=== PATIENT | male | born 1945 | race Caucasian/White ===

== ENCOUNTER → 2016-08-20 | Outpatient (CLI) | payer OTHER ==
[~2016-08-20] VITALS: Ht 177.8 cm; Wt 98.5 kg
[~2016-08-20] MED LIST: AGG PO; AZPOPS OPB; CHOL1CAP30 PO; GLUCLIQ PO; LATA0.009 OPB; LISI-461 PO; LPT40 PO; LUTE15CA PO; MULT-506 PO; OMEG1CAP81 PO; ST J150C6 PO; TPRSR25 PO; VITACAP26 PO
[2016-08-20 13:13] VITALS: BP 167/84; PULSE 85; Ht 177.8 cm; Wt 98.5 kg
== END | disposition home or self-care (01) ==
LOC: C.NEUR 12:49
PROVIDERS: ATTEND Internal Medicine Pulmonary Disease
DX: G47.33 Obstructive sleep apnea (adult) (pediatric) (principal)

== ENCOUNTER → 2016-09-10 | Outpatient (CLI) | payer OTHER ==
[2016-09-10 13:12] LABS: HEMATOCRIT 44.2 % (42-52); MEAN CELL VOLUME 96.9 fL (80-100); MEAN CORPUSCULAR HEMOGLOBIN 32.9 pg (25-34); MEAN CORPUSCULAR HGB CONC 33.9 g/dl (32-36); MEAN PLATELET VOLUME 10.7 fL (7.4-10.4); PLATELET COUNT 285 K/uL (130-400); RED BLOOD COUNT 4.56 M/uL (4.7-6.1); WHITE BLOOD COUNT 5.85 K/uL (4.8-10.8)
[2016-09-10 13:14] LABS: ESTIMATED AVERAGE GLUCOSE 123 mg/dl; HA1C FLAG Normal (Normal)
[2016-09-10 13:27] LABS: ALT/SGPT 27 U/L (12-78); AST/SGOT 17 U/L (15-37); BLOOD UREA NITROGEN 14 mg/dl (7-18); BUN/CREATININE RATIO 9.6 (10-20); CALCIUM 9.1 mg/dl (8.5-10.1); CARBON DIOXIDE 29 mmol/L (21-32); CHLORIDE 106 mmol/L (98-107); CHOLESTEROL 111 mg/dl (0-200); GLUCOSE 102 mg/dl (70-99); POTASSIUM 4.4 mmol/L (3.5-5.1); SODIUM 141 mmol/L (136-145)
[2016-09-10 13:38] LABS: ALB/GLOB RATIO 1.1 (0.9-2); ALKALINE PHOSPHATASE 54 U/L (45-117); CHOLESTEROL/HDL RATIO 1.7; HDL CHOLESTEROL 67 mg/dl; LDL CHOLESTEROL CALCULATED 21 mg/dl; TRIGLYCERIDES 114 mg/dl (0-150); VERY LOW DENSITY LIPOPROT CALC 23 mg/dl
--- NOTE | 2016-09-15 10:01 | CODING QUERY MEDICAL NECESSITY ---
SUPPORTING DIAGNOSIS NEEDED A supporting diagnosis is required for the test/procedure performed on this patient in order for us to be reimbursed by the patient's insurance. Please provide a supporting diagnosis for the following test/procedure listed below next to the test name along with your signature. *If there is no additional diagnosis for this patient that would support the following test/procedure please document that below next to the test/procedure. Test(s)/Procedure(s) that require a supporting diagnosis: DOS 09/10 * Vitamin D DIAGNOSIS: * Vitamin B12 DIAGNOSIS: Provider Signature: Date: Thank you Wanda Waller Health Information Management Once completed, please kindly fax back to [phone] For questions please call [phone]
== END | disposition home or self-care (01) ==
LOC: C.LAB1850 11:39
PROVIDERS: ATTEND Family Medicine
DX: I25.10 Atherosclerotic heart disease of native coronary artery without angina pectoris (principal); E78.5 Hyperlipidemia, unspecified; R53.83 Other fatigue; G47.30 Sleep apnea, unspecified; I12.9 Hypertensive chronic kidney disease with stage 1 through stage 4 chronic kidney disease, or unspecified chronic kidney disease; I42.0 Dilated cardiomyopathy; R73.09 Other abnormal glucose; N18.2 Chronic kidney disease, stage 2 (mild); E03.9 Hypothyroidism, unspecified

== ENCOUNTER → 2017-02-25 | Outpatient (CLI) | payer OTHER ==
[2017-02-25 10:00] LABS: BASO % 1.1 %; BASO ABS # 0.08 K/uL (0-0.2); COMPLETE YES; EOS % 5.4 %; HEMATOCRIT 46.3 % (42-52); IG% 0.1 %; LYMPH % 28.2 %; LYMPH ABS # 2.03 K/uL (1.2-3.4); MEAN CELL VOLUME 96.9 fL (80-100); MEAN CORPUSCULAR HEMOGLOBIN 32.4 pg (25-34); MEAN CORPUSCULAR HGB CONC 33.5 g/dl (32-36); MEAN PLATELET VOLUME 10.3 fL (7.4-10.4); MONO % 8.1 %; NEUT % 57.1 %; PLATELET COUNT 301 K/uL (130-400); RED BLOOD COUNT 4.78 M/uL (4.7-6.1); WHITE BLOOD COUNT 7.19 K/uL (4.8-10.8)
[2017-02-25 10:30] LABS: ALT/SGPT 27 U/L (12-78); BLOOD UREA NITROGEN 16 mg/dl (7-18); BUN/CREATININE RATIO 9.9 (10-20); CALCIUM 9.6 mg/dl (8.5-10.1); CARBON DIOXIDE 30 mmol/L (21-32); CHLORIDE 108 mmol/L (98-107); CHOLESTEROL 132 mg/dl (0-200); GLUCOSE 105 mg/dl (70-99); POTASSIUM 4.3 mmol/L (3.5-5.1); SODIUM 141 mmol/L (136-145); TRIGLYCERIDES 156 mg/dl (0-150); VERY LOW DENSITY LIPOPROT CALC 31 mg/dl
[2017-02-25 10:41] LABS: ALB/GLOB RATIO 1.1 (0.9-2); ALKALINE PHOSPHATASE 56 U/L (45-117); AST/SGOT 21 U/L (15-37); CHOLESTEROL/HDL RATIO 2.3; HDL CHOLESTEROL 57 mg/dl; LDL CHOLESTEROL CALCULATED 44 mg/dl
[2017-02-25 10:49] LABS: ESTIMATED AVERAGE GLUCOSE 117 mg/dl; HA1C FLAG Normal (Normal)
[2017-02-25 13:39] LABS: RATIO 4.2 mcg/mg (0-30.0)
== END | disposition home or self-care (01) ==
LOC: C.LAB1850 09:12
PROVIDERS: ATTEND Nurse Practitioner Family
DX: E78.5 Hyperlipidemia, unspecified (principal); R73.9 Hyperglycemia, unspecified; E03.9 Hypothyroidism, unspecified; I12.9 Hypertensive chronic kidney disease with stage 1 through stage 4 chronic kidney disease, or unspecified chronic kidney disease; N18.2 Chronic kidney disease, stage 2 (mild)

== ENCOUNTER → 2017-04-27 | Outpatient (CLI) | payer OTHER ==
[2017-04-27 14:51] LABS: THYROID STIMULATING HORMONE 0.989 uIu/ml (0.300-4.500)
== END | disposition home or self-care (01) ==
LOC: C.LAB1850 11:55
PROVIDERS: ATTEND Nurse Practitioner Family
DX: E03.9 Hypothyroidism, unspecified (principal); R53.83 Other fatigue

== ENCOUNTER → 2017-11-09 | Day surgery (SDC) | payer OTHER ==
[2017-10-25 13:52] VITALS: Ht 177.8 cm; Wt 99.1 kg
[~2017-11-09] VITALS: Ht 177.8 cm; Wt 99.1 kg
[~2017-11-09] MED LIST changes: -AGG PO; +ASCA500 PO; +ATOR-24 PO; -AZPOPS OPB; -CHOL1CAP30 PO; +CHOLTAB11 PO; +CLOP1TAB15 PO; +DORZ1SOL6 OPB; -GLUCLIQ PO; -LATA0.009 OPB; +LATA0.5S OPB; +LEVO50TA6 PO; +LIDOCAINE HCL 2% 2 ML VIAL (20MG/ML) ONE; -LISI-461 PO; +LISI10TA PO; -LPT40 PO; +METO25TA56 PO; +MISC1CAP60 PO; +NITR0.4S UT; +OMEG10007 PO; +PROPOFOL IV EMULSION 10 MG/ML 20 ML VIAL IV ONE; -ST J150C6 PO; -TPRSR25 PO; -VITACAP26 PO
--- NOTE | 2017-11-09 11:02 | Endo History and Physical ---
History & Physical Date of Service: Nov 09, 2017. Chief Complaint: Screening Referring Physician: Dr. Hernandez History of Present Illness 72 yo CM who presents for screening colonoscopy. Past Medical History Hypertension Past Surgical History Hx Cardiac Surgery: Yes (HEART CATH, STENTS; CABG X1 VESSEL 2003) Hx Internal Defibrillator: No Hx Pacemaker: No Hx Abdominal Surgery: Yes (APPY) Hx of Implantable Prosthesis: No Hx Post-Op Nausea and Vomiting: No Hx Cancer Surgery: Yes (BCC EXCISION) Hx Thoracic Surgery: No Hx Orthopedic: No Hx Urinary Tract Surgery: No Family History None Social History Smoking Status: Former Smoker Hx Substance Use: No Hx Alcohol Use: Yes (OCCASIONAL) Allergies Coded Allergies: No Known Allergies (Unverified , 11/09/17) Current Medications Reported Home Medications Medications Dose Route/Sig Max Daily Dose Days Date Category Saw Wil ([employer] Natural Products) 1 Cap Cap 1 Cap PO DAILY 10/25/17 Reported Vitamin C (Ascorbic Acid) 500 Mg Tab 1 Tab PO DAILY 10/25/17 Reported Weldon-3 (Fish Oil) 1 Ea Cap 1 Cap PO DAILY 10/25/17 Reported Plavix (Clopidogrel Bisulfate) 75 Mg Tab 75 Mg PO QAM 10/25/17 Reported Nitrostat (Nitroglycerin) 0.4 Mg Sub 0.4 Mg UT UD PRN 10/25/17 Reported Levothyroxine Sodium 50 Mcg Tab 1 Tab PO QAM 10/25/17 Reported Cosopt Oph (Dorzolamide Hcl-Timolol Maleat) 1 Stephania Stephania 1 Drops OPB BID 10/25/17 Reported Xalatan 0.005% Oph Stephania (Latanoprost) 0.005 % Stephania 1 Drops OPB HS 10/25/17 Reported Lipitor (Atorvastatin Calcium) 40 Mg Tab 40 Mg PO QPM 10/25/17 Reported Lopressor (Metoprolol Tartrate) 25 Mg Tab 0.5 Tab PO QAM 10/25/17 Reported Lopressor (Metoprolol Tartrate) 25 Mg Tab 1 Tab PO QPM 10/25/17 Reported Prinivil (Lisinopril) 10 Mg Tab 10 Mg PO QPM 10/25/17 Reported D-5000 (Cholecalciferol) 5,000 Unit Tab 1 Tab PO DAILY 10/25/17 Reported Lutein (Lutein-Zeaxanthin) 1 Cap Cap 1 Cap PO DAILY 08/02/14 Reported Fish Oil (Weldon-3 Fatty Acids) 1 Cap Cap 1 Cap PO DAILY 08/02/14 Reported Multivitamin (Multivitamins) Tab 1 Tab PO DAILY 08/02/14 Reported Vital Signs Weight (Kilograms): 99.09 Height (Feet): 5 Height (Inches): 10 Date Time Temp Pulse Resp B/P (MAP) Pulse Ox O2 Delivery O2 Flow Rate FiO2 11/09/17 10:47 36.8 66 16 172/95 (120) Room Air Physical Exam General Appearance: WD/WN, no apparent distress Respiratory/Chest: Auscultation: breath sounds normal Cardiovascular: Heart Auscultation: RRR Abdomen: Bowel Sounds: normal Inspection & Palpation: soft, non-distended, no tenderness, guarding & rebound Assessment and Plan Assessment: 72 yo CM who presents for screening colonoscopy. Plan: Proceed with colonoscopy.
--- NOTE | 2017-11-09 12:01 | Discharge Instructions ---
Endoscopy Patient Instructions Date / Procedure(s) Performed Nov 09, 2017. Colonoscopy Allergy Information Coded Allergies: No Known Allergies (Unverified , 11/09/17) Discharge Date / Findings Nov 09, 2017. Colon polyps Non-specific colitis s/p biopsies Diverticulosis Internal hemorrhoids Medication Instructions Stopped Medication(s): PLAVIX OK to resume all medications today as prescribed Reported Home Medications Medications Dose Route/Sig Max Daily Dose Days Date Category Saw Wil ([facility] [place] [facility]) 1 Cap Cap 1 Cap PO DAILY 10/25/17 Reported Vitamin C (Ascorbic Acid) 500 Mg Tab 1 Tab PO DAILY 10/25/17 Reported Pierce-3 (Fish Oil) 1 Ea Cap 1 Cap PO DAILY 10/25/17 Reported Plavix (Clopidogrel Bisulfate) 75 Mg Tab 75 Mg PO QAM 10/25/17 Reported Nitrostat (Nitroglycerin) 0.4 Mg Sub 0.4 Mg UT UD PRN 10/25/17 Reported Levothyroxine Sodium 50 Mcg Tab 1 Tab PO QAM 10/25/17 Reported Cosopt Oph (Dorzolamide Hcl-Timolol Maleat) 1 Stephania Stephania 1 Drops OPB BID 10/25/17 Reported Xalatan 0.005% Oph Stephania (Latanoprost) 0.005 % Stephania 1 Drops OPB HS 10/25/17 Reported Lipitor (Atorvastatin Calcium) 40 Mg Tab 40 Mg PO QPM 10/25/17 Reported Lopressor (Metoprolol Tartrate) 25 Mg Tab 0.5 Tab PO QAM 10/25/17 Reported Lopressor (Metoprolol Tartrate) 25 Mg Tab 1 Tab PO QPM 10/25/17 Reported Prinivil (Lisinopril) 10 Mg Tab 10 Mg PO QPM 10/25/17 Reported D-5000 (Cholecalciferol) 5,000 Unit Tab 1 Tab PO DAILY 10/25/17 Reported Lutein (Lutein-Zeaxanthin) 1 Cap Cap 1 Cap PO DAILY 08/02/14 Reported Fish Oil (Pierce-3 Fatty Acids) 1 Cap Cap 1 Cap PO DAILY 08/02/14 Reported Multivitamin (Multivitamins) Tab 1 Tab PO DAILY 08/02/14 Reported Provider Instructions Activity Restrictions - No exercising or heavy lifting for 24 hours. - Do not drink alcohol the day of the procedure. - Do not drive a car or operate machinery until the day after the procedure. - Do not make any important decisions or sign important papers in 24 hours after the procedure. Following Day: - Return to full activity which may include returning to work/school. Diet Start your diet with liquids and light foods (jello, soup, juice, toast). Then eat your usual diet if not nauseated. Treatment For Common After Affects For mild abdominal pain, bloating, or excessive gas: - Rest - Eat lightly - Lie on right side Follow-Up Information Follow-up with Dr. Hernandez as scheduled Anesthesia Information What You Should Know You have had a procedure that required some medicine to reduce anxiety and discomfort. This treatment is called moderate sedation. After receiving the treatment, you may be sleepy, but you will be able to breathe on your own. The effects of the treatment may last for several hours. Follow these instructions along with Activity/Diet recommendations noted above: * Do NOT do anything where dizziness or clumsiness would be dangerous. * Rest quietly at home today, then you can be up and about tomorrow. * Have a responsible person stay with you the rest of today. * You may have had an I.V. today. If so, you may take the dressing off later today. Recommendations Call your doctor if: * Trouble breathing * Continuous vomiting for more than 24 hours * Temperature above 101 degrees * Severe abdominal pain or bloating * Pain not relieved by pain medicine ordered * There is increased drainage or redness from any incision * A large amount of rectal bleeding greater than 2-3 tablespoons. (If you had a polyp/s removed or have hemorrhoids, a small amount of blood - from the rectum is to be expected.) * You have any unanswered questions or concerns. IN THE EVENT OF A SERIOUS EMERGENCY, GO TO THE NEAREST EMERGENCY ROOM Your discharge instructions were prepared by provider Gonzalo Guaman. Patient Instructions Signature Page Riley Martinez Patient (or Guardian) Signature/Date: I have read and understand the instructions given to me by my caregivers. Caregiver/RN/Doctor Signature/Date: The above-named patient and/or guardian has received patient instructions on this date. + Original Patient Signature Page (only) stays with chart. Please make copy for patient.
--- NOTE | 2017-11-09 12:14 | GI REPORT ---
Procedure Date: 11/09/2017 11:20 AM Procedure: Colonoscopy Indications: Screening for colorectal malignant neoplasm Medicines: Monitored Anesthesia Care Complications: No immediate complications. Estimated Blood Loss: Estimated blood loss: none. Procedure: Pre-Anesthesia Assessment: - Prior to the procedure, a History and Physical was performed, and patient medications and allergies were reviewed. The patient's tolerance of previous anesthesia was also reviewed. The risks and benefits of the procedure and the sedation options and risks were discussed with the patient. All questions were answered, and informed consent was obtained. Prior Anticoagulants: The patient has taken Plavix (clopidogrel), last dose was 4 days prior to procedure. ASA Grade Assessment: III - A patient with severe systemic disease. After reviewing the risks and benefits, the patient was deemed in satisfactory condition to undergo the procedure. After I obtained informed consent, the scope was passed under direct vision. Throughout the procedure, the patient's blood pressure, pulse, and oxygen saturations were monitored continuously. The scope was introduced through the anus and advanced to the terminal ileum. The colonoscopy was performed without difficulty. The patient tolerated the procedure well. The quality of the bowel preparation was good. The terminal ileum, ileocecal valve, appendiceal orifice, and rectum were photographed. Findings: The perianal and digital rectal examinations were normal. A 10 mm polyp was found in the ascending colon. The polyp was sessile. The polyp was removed with a hot snare. Resection and retrieval were complete. To prevent bleeding after the polypectomy, one hemostatic clip was successfully placed (MR conditional). There was no bleeding at the end of the procedure. Localized mild inflammation characterized by erosions and erythema was found in the ascending colon. Biopsies were taken with a cold forceps for histology. Multiple small-mouthed diverticula were found in the sigmoid colon. Non-bleeding internal hemorrhoids were found during retroflexion. The hemorrhoids were small. Impression: - One 10 mm polyp in the ascending colon, removed with a hot snare. Resected and retrieved. Clip (MR conditional) was placed. - Localized mild inflammation was found in the ascending colon secondary to colitis. Biopsied. - Diverticulosis in the sigmoid colon. - Non-bleeding internal hemorrhoids. Recommendation: - Resume previous diet. - Continue present medications. - Repeat colonoscopy for surveillance based on pathology results. - Return to primary care physician as previously scheduled. Gonzalo Guaman DO 11/09/2017 12:13:38 PM This report has been signed electronically. Note Initiated On: 11/09/2017 11:20 AM I attest to the content of the Intraoperative Record and orders documented therein, exceptions below
[2017-11-09 12:26] VITALS: BP 141/82; PULSE 62; O2SAT 99
--- NOTE | 2017-11-09 12:37 | Anesthesiology Progress Note ---
Anesthesia Post Op Note Date & Time Nov 09, 2017 at 12:37 Vital Signs Pain Intensity: 0 Vital Signs Past 12 Hours Date Time Temp Pulse Resp B/P (MAP) Pulse Ox O2 Delivery O2 Flow Rate FiO2 11/09/17 12:26 62 20 141/82 (101) 99 Room Air 11/09/17 12:11 98 Room Air 11/09/17 12:11 65 20 110/60 (77) Room Air 11/09/17 11:57 65 20 91/45 (60) 98 Room Air 11/09/17 10:47 36.8 66 16 172/95 (120) Room Air Notes Mental Status: alert / awake / arousable, participated in evaluation Pt Amnestic to Procedure: Yes Nausea / Vomiting: adequately controlled Pain: adequately controlled Airway Patency, RR, SpO2: stable & adequate BP & HR: stable & adequate Hydration State: stable & adequate Anesthetic Complications: no major complications apparent
== END | disposition home or self-care (01) ==
LOC: C.GI 09:49
PROVIDERS: ATTEND Internal Medicine
DX: Z12.11 Encounter for screening for malignant neoplasm of colon (principal); D12.2 Benign neoplasm of ascending colon; K52.9 Noninfective gastroenteritis and colitis, unspecified; K57.30 Diverticulosis of large intestine without perforation or abscess without bleeding; K64.8 Other hemorrhoids; Z79.899 Other long term (current) drug therapy; Z87.891 Personal history of nicotine dependence; Z95.5 Presence of coronary angioplasty implant and graft; Z95.1 Presence of aortocoronary bypass graft; Z79.02 Long term (current) use of antithrombotics/antiplatelets

== ENCOUNTER → 2018-03-03 | Outpatient (CLI) | payer OTHER ==
[~2018-03-03] MED LIST changes: -LIDOCAINE HCL 2% 2 ML VIAL (20MG/ML) ONE; -PROPOFOL IV EMULSION 10 MG/ML 20 ML VIAL IV ONE
[2018-03-03 12:22] LABS: BASO % 0.9 %; BASO ABS # 0.05 K/uL (0-0.2); EOS % 3.1 %; EOS ABS # 0.18 K/uL (0-0.5); HEMATOCRIT 42.4 % (42-52); HEMOGLOBIN 14.3 g/dL (14.0-18.0); IG# 0.01 K/uL (0.00-0.02); LYMPH % 24.4 %; LYMPH ABS # 1.42 K/uL (1.2-3.4); MEAN CELL VOLUME 96.1 fL (80-100); MEAN CORPUSCULAR HEMOGLOBIN 32.4 pg (25-34); MEAN CORPUSCULAR HGB CONC 33.7 g/dl (32-36); MEAN PLATELET VOLUME 10.8 fL (7.4-10.4); MONO % 9.1 %; MONO ABS # 0.53 K/uL (0.11-0.59); NEUT % 62.3 %; NEUT ABS # 3.63 K/uL (1.4-6.5); PLATELET COUNT 261 K/uL (130-400); RED CELL DISTRIBUTION WIDTH CV 13.9 % (11.5-14.5); RED CELL DISTRIBUTION WIDTH SD 48.7 fL (36.4-46.3); WHITE BLOOD COUNT 5.82 K/uL (4.8-10.8)
[2018-03-03 12:42] LABS: ALBUMIN 3.8 gm/dl (3.4-5.0); ALKALINE PHOSPHATASE 55 U/L (45-117); ALT/SGPT 25 U/L (12-78); AST/SGOT 21 U/L (15-37); BLOOD UREA NITROGEN 16 mg/dl (7-18); CALCIUM 8.8 mg/dl (8.5-10.1); CARBON DIOXIDE 26 mmol/L (21-32); CHOLESTEROL 106 mg/dl (0-200); CREATININE 1.52 mg/dl (0.60-1.40); GLUCOSE 105 mg/dl (70-99); LDL CHOLESTEROL CALCULATED 26 mg/dl; SODIUM 140 mmol/L (136-145); TOTAL PROTEIN 7.2 gm/dl (6.4-8.2)
[2018-03-03 12:45] LABS: HEMOGLOBIN A1C 5.9 % (4.5-5.6)
== END | disposition home or self-care (01) ==
LOC: C.LAB1850 09:50
PROVIDERS: ATTEND Nurse Practitioner Family
DX: I25.10 Atherosclerotic heart disease of native coronary artery without angina pectoris (principal); E78.5 Hyperlipidemia, unspecified; R73.9 Hyperglycemia, unspecified; E03.9 Hypothyroidism, unspecified; I12.9 Hypertensive chronic kidney disease with stage 1 through stage 4 chronic kidney disease, or unspecified chronic kidney disease; N18.2 Chronic kidney disease, stage 2 (mild)

== ENCOUNTER 2022-07-23 06:58 | Observation (INO) ==
--- NOTE | 2022-07-20 12:24 | Anesthesiology Consultation ---
Date of Service July 20, 2022 Assessment & Plan (1) Encounter for pre-operative examination: Chart Review Chart Review: Acceptable Risk for Surgery History Surgery Operation Date: 07/23/22 07:30 Proposed Procedures p TURP (Transurethral Resection of the Prostate) - Mor Killian DO s Possible Transrectal Ultrasound, Possible Prostate Biopsy - Mor banks DO Height/Weight Height: 5 ft 10 in Weight: 95.254 kg Allergies Allergy/AdvReac Type Severity Reaction Status Date / Time No Known Drug Allergies Allergy Verified 07/20/22 08:58 Medications Home Medications Medication Instructions Recorded Confirmed Last Taken latanoprost 0.005 % eye drops 1 drops ophthalmic (eye) HS 03/20/19 07/20/22 Unknown CPAP Machine #1 ea 05/17/19 05/20/22 Unknown nitroglycerin 0.4 mg sublingual 0.4 mg sublingual Q5M PRN chest 01/22/21 07/20/22 Unknown tablet pain #30 tabs dorzolamide 22.3 mg-timolol 6.8 1 drp ophthalmic (eye) BID 09/08/21 07/20/22 Unknown mg/mL eye drops levothyroxine 50 mcg tablet 50 mcg PO DAILY #90 tabs 02/10/22 07/20/22 Unknown diphenhydramine HCl 25 mg tablet 25 mg PO .qhs PRN Insomnia 02/17/22 07/20/22 Unknown atorvastatin 40 mg tablet 40 mg PO QPM #90 tabs 04/21/22 07/20/22 Unknown losartan 25 mg tablet 25 mg PO DAILY #90 tabs 04/21/22 07/20/22 Unknown mupirocin 2 % topical ointment 1 applic topical DAILY #22 grams 04/21/22 07/20/22 Unknown aspirin 81 mg tablet,delayed 81 mg PO DAILY 07/02/22 07/20/22 Unknown release clopidogrel 75 mg tablet 75 mg PO Q2D 07/02/22 07/20/22 Unknown finasteride 5 mg tablet 5 mg PO DAILY #90 tabs 07/02/22 07/20/22 Unknown tamsulosin 0.4 mg capsule 0.4 mg PO DAILY #90 caps 07/02/22 07/20/22 Unknown metoprolol succinate 25 mg 25 mg PO DAILY #90 tabs 07/13/22 07/20/22 Unknown tablet,extended release 24 hr Past Medical History Medical History (Updated 07/20/22 @ 12:36 by Poncho Steve MD) Arthritis BPH (benign prostatic hyperplasia) Cardiomyopathy Chronic kidney disease ? 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>MILD WEAKNESS ON RT SIDE (REASON FOR PLAVIX) Hyperlipidemia Hypertension Hypothyroidism Sleep apnea CPAP Ulcerative colitis Past Family History Family History Mother Adverse effect of anesthesia Heart disease Environmental allergies Hypertension Stroke Father Heart disease Hypertension Stroke Brother Heart disease Hypertension Family/Other Heart disease Grandfather (Maternal) Heart disease Hypertension Grandmother (Maternal) Heart disease Hypertension Other No family history of adverse response to anesthesia No family history of bleeding disorder Denies family history of Ovarian cancer Prostate cancer Myocardial infarction Breast cancer Colorectal cancer Past Surgical History Surgical History H/O eye surgery RT/LEFT FOR GLAUCOMA *LASER SURGERIES H/O heart bypass surgery 2003>SINGLE VESSEL AT [facility] *NOW FOLLOWS WITH DR. LOPEZ History of appendectomy History of cardiac cath 2003 History of colonoscopy History of nasal cauterization History of tooth extraction Social History Smoking Status: Former smoker tobacco type: cigarettes Smoking End Date: 35+ YEARS AGO Hx Alcohol Use: Yes Alcohol type: wine alcohol intake frequency: a few times a week Hx Substance Use: No Testing Laboratory Results Laboratory Tests 04/17/22 07/15/22 07/15/22 08:35 09:41 09:41 Hgb 13.2 L Plt Count 363 Potassium 4.4 Creatinine 1.46 H Hemoglobin A1c 6.1 H Electrocardiogram Date: 07/15/22 Findings: + NSR @ (62 1st degree AV block) Echocardiogram Per cardiology notes had an EF 45% in past but returned to normal Stress Test 2014 inferior ischemia - refused intervention - per Cards note has been stable and exercises in a gym 3 times a week - does occasionally use nitroglycerin
[~2022-07-23 06:58] MED LIST changes: -ASCA500 PO; -ATOR-24 PO; -CHOLTAB11 PO; -CLOP1TAB15 PO; -DORZ1SOL6 OPB; +GENTAMICIN SULFATE 80 MG in DEXTROSE 5% 100 ML IV SCH; -LATA0.5S OPB; -LEVO50TA6 PO; -LISI10TA PO; +LR 15ML/HR IV SCH; -LUTE15CA PO; -METO25TA56 PO; -MISC1CAP60 PO; -MULT-506 PO; -NITR0.4S UT; -OMEG10007 PO; -OMEG1CAP81 PO; +cefTRIAXone SODIUM 1,000 MG in DEXTROSE 5% 50 ML IV SCH
[2022-07-23] MEDS ORDERED: MoRPHine SULFATE 2 MG/ML CARP IV PRN (07:07)
[2022-07-23] MEDS ORDERED: oxyCODONE/ACETAMINOPHEN 5mg/325mg TAB PO PRN (07:07)
--- NOTE | 2022-07-23 07:07 | History & Physical Bridge Note ---
Date of Service July 23, 2022 History & Physical Bridge Note I have examined the patient, reviewed the History & Physical and in the interval since the performance of the History & Physical I have noted the following changes of clinical significance: no changes noted
[2022-07-23] MEDS ORDERED: NITROGLYCERIN SL 0.4 MG/TAB TAB SL PRN (07:14)
[2022-07-23] MEDS ORDERED: PHENAZOPYRIDINE HCL 200 MG TAB PO PRN (07:15)
[2022-07-23] MEDS ORDERED: BELLADONNA/OPIUM SUPP 60 MG SUPP PR PRN (07:15)
[2022-07-23] MEDS ORDERED: cefTRIAXone SODIUM 1,000 MG in DEXTROSE 5% AD-VAN 50 ML IV STA (07:43)
[2022-07-23] MEDS ORDERED: ONDANSETRON INJ 2 MG/ML 2 ML VIAL ONE (07:46)
[2022-07-23] MEDS ORDERED: DEXAMETHASONE SOD INJ 4 MG/ML VIAL ONE (07:46)
[2022-07-23] MEDS ORDERED: LIDOCAINE 2% MPF LOCAL 5 ML VIAL INFIL ONE (07:46)
[2022-07-23] MEDS ORDERED: PROPOFOL IV EMULSION 10 MG/ML 20 ML VIAL IV ONE ×3 (07:46→09:41)
[2022-07-23] MEDS ORDERED: ATROPINE SULFATE 0.1 MG/ML 10ML SYR IV PRN (08:11)
[2022-07-23] MEDS ORDERED: fentaNYL citrate 100 MCG/2 ML VIAL IV PRN (08:11)
[2022-07-23] MEDS ORDERED: ONDANSETRON INJ 2 MG/ML 2 ML VIAL IV PRN (08:11)
[2022-07-23] MEDS ORDERED: ePHEDrine sulfate 50 MG/ML AMP IV PRN (08:11)
[2022-07-23] MEDS ORDERED: PROMETHAZINE HCL 6.25 MG in SODIUM CHLORIDE 0.9% 50 ML IV PRN (08:11)
[2022-07-23 08:18] LABS: Basophils # (auto) 0.08 K/uL (0-0.2); Basophils % (auto) 1.4 %; Eosinophils # (auto) 0.37 K/uL (0-0.50); Eosinophils % (auto) 6.6 %; Hematocrit (blood only) 39.9 % (40.1-51.0); Hemoglobin 13.2 g/dl (14.0-18.0); Immature Granulocytes # (auto) 0.02 K/uL (0.00-0.02); Immature Granulocytes % (auto) 0.4 %; Mean Corpuscular Hemoglobin 32.6 pg (25.0-34.0); Mean Corpuscular Hgb Conc 33.1 g/dL (32.0-36.0); Mean Corpuscular Volume 98.5 fL (80.0-100.0); Mean Platelet Volume 10.3 fL (9.4-12.4); Monocytes # (auto) 0.58 K/uL (0.24-0.82); Monocytes % (auto) 10.3 %; Neutrophils # (auto) 3.16 K/uL (1.4-6.5); Neutrophils % (auto) 56.3 %; Platelet Count 208 K/uL (130-400); RDW Coefficient of Variation 13.2 % (11.5-14.5); RDW Standard Deviation 47.8 fL (36.4-46.3); Red Blood Count 4.05 M/uL (4.63-6.08); White Blood Count 5.61 K/ul (4.8-10.8)
[2022-07-23] MEDS ORDERED: BELLADONNA/OPIUM SUPP 60 MG SUPP PR ONE (08:43)
[2022-07-23] MEDS ORDERED: fentaNYL citrate 100 MCG/2 ML VIAL ONE (08:49)
[2022-07-23 08:55] LABS: Albumin Globulin Ratio 1.4 (0.9-2); Albumin Level 3.9 gm/dl (3.4-5.0); BUN Creatinine Ratio 12.6 (10-20); Bilirubin,Total 0.6 mg/dl (0.2-1.0); Calcium 9.4 mg/dl (8.5-10.1); Creatinine Clr Calc Pharmacy 49.5 ml/min; Est GFR (African American) 54.4 ml/min; Est GFR (Non-African American) 46.9 ml/min; Globulin 2.8 gm/dl (2.5-4.0); Potassium 4.1 mmol/L (3.5-5.1); Total Protein 6.7 gm/dl (6.0-8.3)
--- NOTE | 2022-07-23 09:54 | Operative Report ---
PG Post Operative Report Pre & Post Diagnosis Operation Date: 07/23/22 08:25 Pre-Op Diagnosis: Acute Urinary Retention, Elevated Prostate Specifi Post-Op Diagnosis: Acute Urinary Retention, Elevated Prostate Specific Antigen I identified the patient and participated in the time-out.: Yes Procedure Operation Date: 07/23/22 08:25 Actual Procedures p Transurethral Resection of the Prostate(Not Applicable) - Mor Killian DO s Transrectal Ultrasound, Transnea Prostate Biopsy(Not Applicable) - Mor Killian DO Surgeon Mor Killian, II, DO Resistance Machine Welder Setter None Estimated Blood Loss 10 Findings Consistent with Post-Op Diagnosis Large Prostate with obstruction. Extremely large lateral and median lobes with considerable obstruction and high bladder neck 16 x biopsy of prostate. Volume on u/s 106.46 Specimens Prostate adenoma. Core biopsy x 16 - 2 x Right and Left : Base, Mid, Lateral, and apex Drains 24Fr [address] Catheter Anesthesia Type General Complications none Disposition Disposition: Recovery Room Indications Patient with obstruction due to prostate enlargement. Significantly elevated PSA. Risks and benefits discussed at length. Description of Procedure Patient was consented and brought back to the operating room. Patient was placed under anesthesia in the supine position and moved to the dorsal lithotomy position. Patient was prepped and draped in the regular sterile fashion. A time out was completed. Attention was first taken to the prostate biopsy. Preparation: The patient was prepped and draped in the usual sterile fashion, a 6mHz GE transrectal probe, lubricated with Surgilube, was gently placed within the rectal vault and positioned adjacent to the prostate Transrectal Sonography Transrectal Prostate Biopsy with Ultrasound: Core biopsies take from the right side of the prostate: 8 Core biopsies taken from the left side of the prostate: 8 Locations: Left, Right, Base, Mid and [place] Total number of biopsies: 16 Hypoechoic Lesion(s) Hypoechoic Lesion(s): None Calcification(s) Calcification(s): None Prostate Capsule Prostate Capsule: Intact Contour: smooth Seminal Vesicles Seminal Vesicles: Normal Estimated Prostate Weight (grams): 106.46 PSA Value: PSA (NG/ML) 17 PAMELLA: No palpable nodules or masses. Extremely large prostate. Belladonna and opium suppository placed after the procedure. At this point, the area was reprepped and I re-scrubbed and my drapes/gloves were exchanged. A 30degree Cystoscope was placed into the bladder and the entire bladder was examined. The UO's were identified as well as the bladder neck, trigone, dome, and the other important landmarks. The prostatic urethra and large lobes/adenoma was assessed and the veru and bladder neck identified and area/size was assessed. The resection scope was placed and the fine bipolar loop was selected. Starting at the 5 and 7 o'clock positions, a channel was created from bladder neck to the veru. A large amount of tissue was resected in order to debulk this area. The lateral and median lobes were all found to have severe enlargement. Large varicosities were noted throughout the prostate and required fulguration throughout the process. The Specimen was removed and sent for analysis. The resection bed and any bleeding areas were fulgurated/cauterized and the entire area inspected. All bleeding was controlled. The bladder was inspected a final time. The bladder was emptied and irrigated. All specimen and debris was removed. The scope was removed with the bladder partially full. A catheter was placed and balloon elevated. This was easily irrigated. The patient was cleaned, aroused from anesthesia, and transferred to the pacu in stable condition having tolerated the procedure well with no complications. I was present and participated in all aspects of the procedure. The patient will be monitored in the PACU until transferred. Will plan to observe patient overnight with catheter in place with CBI. Pathology and catheter removal likely in 10 days. I attest to the content of the Intraoperative Record and any orders documented therein. Any exceptions are noted below.
[2022-07-23] MEDS ORDERED: diphenhydrAMINE Capsule 25 MG CAP PO PRN (11:01)
--- NOTE | 2022-07-23 11:06 | Anesthesiology Progress Note ---
Date of Service July 23, 2022 Anesthesia Post Procedure Vital Signs Vital Signs: Temp Pulse Pulse Resp BP Pulse Ox O2 Del Method 07/23/22 11:00 58 L 12 142/78 H 96 Room Air 07/23/22 10:45 62 16 137/69 95 Room Air 07/23/22 10:35 36.3 C L 58 L 13 133/72 93 Room Air 07/23/22 10:25 57 L 12 121/72 92 Room Air 07/23/22 10:15 60 16 143/75 H 97 Oxymask 07/23/22 10:05 68 17 148/83 H 98 Oxymask 07/23/22 09:55 36.1 C L 67 17 136/82 97 Oxymask 07/23/22 07:37 36.8 C 75 18 149/83 H 98 Room Air O2 Flow Rate 07/23/22 11:00 07/23/22 10:45 07/23/22 10:35 07/23/22 10:25 07/23/22 10:15 5 07/23/22 10:05 5 07/23/22 09:55 7 07/23/22 07:37 Pain Intensity Penis: Pain Intensity: 2 Transfer of Care Handoff Completed per policy Notes Mental Status: alert / awake / arousable Patient Amnestic to Procedure: Yes Nausea / Vomiting: adequately controlled Pain: adequately controlled Airway Patency, RR, SpO2: stable & adequate BP & HR: stable & adequate Hydration State: stable & adequate Anesthetic Complications: no major complications apparent
[2022-07-23] MEDS: SODIUM CHLORIDE 0.9% 1000ML 1,000 ML IV SCH (14:11)
[2022-07-23] MEDS: METOPROLOL SUCC 25MG EXT REL TAB PO SCH (14:22)
[2022-07-23] MEDS: DOCUSATE SODIUM 100 MG CAP PO SCH ×2 (14:55→20:02)
[2022-07-23] MEDS: MUPIROCIN 2% OINT 22 GM TUBE TOP SCH (14:55)
[2022-07-23] MEDS: TAMSULOSIN HCL 0.4 MG CAP PO SCH (14:56)
[2022-07-23] MEDS: DORZOLAMIDE/TIMOLOL 22.3/6.8MG/ML 10 ML BTL OP SCH (20:03)
[2022-07-23] MEDS ORDERED: ATORVASTATIN 40 MG TAB PO SCH (21:00)
[2022-07-23] MEDS ORDERED: LATANOPROST 0.005% OP SOLN 2.5 ML BTL OP SCH (21:00)
[2022-07-24] MEDS: SODIUM CHLORIDE 0.9% 1000ML 1,000 ML IV SCH (03:31)
[2022-07-24] MEDS ORDERED: LEVOTHYROXINE SODIUM 50 MCG TABLET PO SCH (06:30)
[2022-07-24] MEDS ORDERED: cefTRIAXone SODIUM 2,000 MG in DEXTROSE 5% AD-VAN 50 ML IV SCH (08:30)
--- NOTE | 2022-07-24 08:39 | Urology Progress Note ---
Date of Service July 24, 2022 Assessment & Plan (1) Acute urinary retention: (2) Elevated prostate specific antigen (PSA): Plan: - Pt POD#1 s/p TURP and prostate biopsy with Dr. Killian - Doing well, progressing as expected - Tolerating PO diet - 3 way Elias catheter intact, patent and draining clear urine with CBI on slow - CBI clamped @0815 - will reassess later this AM - Maintain Elias catheter for 10 days - Anticipate home with Elias catheter later today presuming urine appropriate and he continues to progress as expected - He can resume aspirin and Plavix in 1-2 days if urine remains clear to light pink - Rx sent for Cephalexin 500 mg BID x 7 days - Expected clinical course reviewed, all questions answered - Will arrange outpatient follow-up with our service for voiding trial and pathology review Pt reassessed at 0930 - urine clear light grayson color with CBI clamped. Discontinue CBI set up, plug irrigation port. Patient is ready for discharge to home with Elias catheter. Orders placed. Admission and Anticipated Discharge Date Admission Date: July 23, 2022 Subjective Patient seen and examined at bedside this morning. He is awake and sitting up in bed eating breakfast. No acute issues overnight, though notes he did not sleep well. He reports some discomfort at the tip of his penis, otherwise denie s pain. Elias intact and draining clear urine with CBI on slow. CBI clamped at 0815. Tolerating PO diet. No nausea or vomiting. No fever or chills. Review of Systems Constitutional: as per Subjective / HPI Gastrointestinal: as per Subjective / HPI Genitourinary: + as per Subjective / HPI Physical Exam Constitutional: well developed and well nourished; no acute distress Respiratory: normal respiratory effort; no respiratory distress and no labored breathing Gastrointestinal (Abdomen): Inspection/Auscultation: abdomen not distended Musculoskeletal: Head/Neck/Chest: normocephalic and head atraumatic Psychiatric: Orientation: alert and oriented x 3 Genitourinary: Elias intact and draining clear urine with CBI on slow. CBI clamped at 0815. Results & Data ([facility]) Vital Signs (Past 12 Hours) Vital Signs Temp Pulse Pulse Resp BP BP Pulse Ox 07/24/22 07:29 36.7 C 69 18 132/74 96 07/24/22 02:38 36.5 C 68 18 142/73 H 97 07/23/22 23:32 36.7 C 72 16 127/70 95 07/23/22 22:18 61 O2 Del Method 07/24/22 07:29 Room Air 07/24/22 02:38 Room Air 07/23/22 23:32 Room Air 07/23/22 22:18 PG Care Time/CCT Total # of Minutes Spent Total Time Spent with Patient: Total time spent is greater than 50% in coordination of care (as documented) at patient's floor/unit and/or counseling patient: Coding Level of Care Code None Diagnoses Acute urinary retention R33.8 Elevated prostate specific antigen (PSA) R97.20
--- NOTE | 2022-07-24 08:51 | Discharge Summary ---
Date of Service July 24, 2022 Admission HPI Per Admitting Provider Patient with obstruction due to prostate enlargement. Significantly elevated PSA. Here for TURP and prostate biopsy. Risks and benefits discussed at length. Admission Exam Per Admitting Provider General: Alert in no acute distress. HEENT: Normocephalic Atraumatic. Inspection normal. Psychologic: Normal affect. Respiratory: Nonlabored. Cardiovascular: No tachycardia Skin: Portal and Dry. Principal Diagnosis Acute urinary retention, elevated PSA Discharge Exam Constitutional well developed and well nourished; no acute distress Respiratory normal respiratory effort; no respiratory distress and no labored breathing Gastrointestinal (Abdomen) Inspection/Auscultation: abdomen not distended Musculoskeletal Head/Neck/Chest: normocephalic and head atraumatic Psychiatric Orientation: alert and oriented x 3 Genitourinary Elias draining clear urine with CBI on slow. CBI clamped at 0815. Discharge Data Allergies Allergy/AdvReac Type Severity Reaction Status Date / Time No Known Drug Allergies Allergy Verified 07/23/22 07:21 Procedures Performed Operation Date: 07/23/22 08:25 Actual Procedures p Transurethral Resection of the Prostate(Not Applicable) - Mor Killian DO s Transrectal Ultrasound, Transnea Prostate Biopsy(Not Applicable) - Mor Killian DO Hospital Course (1) Acute urinary retention: (2) Elevated prostate specific antigen (PSA): - Pt POD#1 s/p TURP and prostate biopsy with Dr. Killian - Doing well, progressing as expected - Tolerating PO diet - 3 way Elias catheter intact, patent and draining clear urine with CBI on slow - CBI clamped @0815 - will reassess later this AM - Maintain Elias catheter - Anticipate home with Elias catheter later today presuming urine appropriate and he continues to progress as expected - He can resume aspirin and Plavix in 1-2 days if urine remains clear to light pink - Rx sent for Cephalexin 500 mg BID x 7 days - Expected clinical course reviewed, all questions answered - Will arrange outpatient follow-up with our service for voiding trial and pathology review Pt reassessed at 0930 - urine clear light grayson color with CBI clamped. Discontinue CBI set up, plug irrigation port. Patient is ready for discharge to home with Elias catheter. Orders placed. Total Time Total Time Spent Total Time Spent (In Minutes): 29 Discharge Plan Discharge Items Patient Disposition: Home - Self-Care Reason For Visit: Acute Urinary Retention, Elevated Prostate Specifi Discharge Diagnosis: Acute Urinary retention, Elevated Prostate Specific Antigen Activity: Per Instructions section Lifting: No more than 25 pounds Bathing Comment: Okay to shower, no tub bath or soaking Sexual Activity: Wait until after follow-up appointment Exercise/Sports: Wait until after follow-up appointment Non-emergency contact: Surgeon and Urologist Call non-emergency contact if: your pain is not controlled, your pain is worsening and you have a fever Follow-up/Referrals: Blayne Hernandez III, CRNP [Primary Care Provider] - Mor Killian DO [Physician] - 08/04/22 11:15 am Diet: Regular Addtl Attending Provider Instructions: Please take all medications as prescribed and keep all follow-ups as scheduled. Please call our office at [phone] with any questions, concerns or need to reschedule appointments for any reason. We are happy to assist you. Okay to resume your Aspirin and Plavix tomorrow (07/25) as long as your urine is clear to light pink. Start your antibiotic tonight and continue twice daily until completed. Tips for your recovery at home: Dont be alarmed by brownish or reddish blood or clots in your urine. This is a result of the procedure. This may occur off and on for weeks to months after the procedure but should continue to improve. Drink plenty of fluids during the day (enough to keep your urine very light colored). This will help keep a healthy flow of urine. Do not lift >25 lbs until your followup Avoid constipation. Please use a stool softener (Colace) for the first two weeks after your procedure Be sure to finish the antibiotics as prescribed. If you go home with a catheter, please wash tubing where it enters your body twice daily with mild soap (Dove or Dial). Once your catheter is removed, expect some blood in your urine and some burning when you urinate. You should have an appointment to have this removed, if you do not please call our office to arrange. Pending Studies at Discharge: Yes Studies:: pathology Stand-Alone Forms: My [employer], Smoking Cessation Medications and DC Order Prescriptions: New cephalexin 500 mg capsule 500 mg PO BID 7 Days Qty: 14 0RF docusate sodium [Colace] 100 mg capsule 100 mg PO BID Qty: 60 0RF Rx Instructions: Take twice daily for 2 weeks, then as needed for constipation. Continued levothyroxine 50 mcg tablet 50 mcg PO DAILY Qty: 90 1RF Label Comments: QAM metoprolol succinate 25 mg tablet extended release 24 hr 25 mg PO DAILY Qty: 90 3RF Label Comments: QAM latanoprost 0.005 % drops 1 drops OP HS dorzolamide-timolol 22.3-6.8 mg/mL drops 1 drp OP BID nitroglycerin 0.4 mg tablet, sublingual 0.4 mg SL Q5M PRN (Reason: chest pain) Qty: 30 1RF tamsulosin 0.4 mg capsule 0.4 mg PO DAILY Qty: 90 3RF Label Comments: TAKE AFTER LUNCH finasteride 5 mg tablet 5 mg PO DAILY Qty: 90 3RF Label Comments: QPM atorvastatin 40 mg tablet 40 mg PO QPM Qty: 90 3RF losartan 25 mg tablet 25 mg PO DAILY Qty: 90 3RF Label Comments: QPM mupirocin 2 % ointment 1 applic topical DAILY Qty: 22 0RF Rx Instructions: APPLY TO NARES diphenhydramine HCl 25 mg tablet 25 mg PO .qhs PRN (Reason: Insomnia) (DME) CPAP Machine Misc See Dose Instructions .ROUTE .MEDSUPPLY Qty: 1 0RF Dose Instruction: As directed Rx Instructions: INCREASE CPAP TO 15 [facility] - T [facility] - DO COMPLIANT DATA 1 MONTH AFTER CHANGE aspirin [Aspir-Low] 81 mg Tablet,Delayed Release (Dr/Ec) 81 mg PO DAILY Label Comments: ON HOLD FOR SURGERY PER PATIENT clopidogrel 75 mg tablet 75 mg PO Q2D Label Comments: CURRENY ON HOLD FOR SURGERY PER PATIENT Discharge Orders: Discharge Order (Routine); Ordered 07/24/22 Ordered By: Indigo Adan Admission Data Admit Date/Time: 07/23/22 07:07 Attending Provider: Mor Killian Admit Provider: Mor Killian Primary Care Provider: Blayne Hernandez III Coding Level of Care Code D/C DAY MANAGEMENT <30 MINS Diagnoses Acute urinary retention R33.8 Elevated prostate specific antigen (PSA) R97.20
[2022-07-24] MEDS: DORZOLAMIDE/TIMOLOL 22.3/6.8MG/ML 10 ML BTL OP SCH (08:56)
[2022-07-24] MEDS: DOCUSATE SODIUM 100 MG CAP PO SCH (08:57)
[2022-07-24] MEDS: METOPROLOL SUCC 25MG EXT REL TAB PO SCH (08:57)
[2022-07-24] MEDS: TAMSULOSIN HCL 0.4 MG CAP PO SCH (08:57)
[2022-07-24] MEDS: MUPIROCIN 2% OINT 22 GM TUBE TOP SCH (09:00)
== END 2022-07-24 12:10 | disposition home or self-care (01) ==
LOC: PACUINP 06:58 → ASU 06:58 → 2N 13:08